=== PATIENT | male | born 1965 | race Two or more races ===

== ENCOUNTER 2019-02-06 17:23 | Emergency (ER) | payer MEDICAID ==
[~2019-02-06] VITALS: Ht 167.6 cm; Wt 74.8 kg
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
[2019-02-06 17:45] VITALS: BP 128/84
--- NOTE | 2019-02-06 18:05 | NUR ---
ED Nurse Note: PT AMBULATED TO RESTROOM INDEPEDENTLY WITH STEADY GAIT.
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
[2019-02-06 18:37] VITALS: BP 122/82
--- NOTE | 2019-02-06 18:37 | NUR ---
ED Nurse Note: PT LAYING PEACEFULLY IN BED IN NAD. AOX4. ALL RESOURCES REVIEWED ONCE AGAIN. MORE FOOD AND DRINK PROVIDED FOR PT. DISCHARGE PAPERWORK EXPLAINED TO PT. PT VERBALIZES UNDERSTANDING AND ALL QUESTIONS ANSWERED. PT STILL REFUSES ASSISTANCE WITH PLACEMENT AND STATES HE WILL FIGURE IT OUT ON HIS OWN. PT WALKED OUT OF ER WITH STEADY GAIT AND ALL BELONGINGS.
--- NOTE | 2019-02-07 16:25 | Cardiology Report ---
APPROVED REPORT EKG Measurement Heart [id number] [place] [id number] Normal sinus rhythm Normal ECG
== END 2019-02-06 18:37 | disposition home or self-care (01) ==
LOC: EDBD 17:23 → EMR 17:36
DX: F10.129 Alcohol abuse with intoxication, unspecified (principal); Z95.0 Presence of cardiac pacemaker; Z59.0 Homelessness; I10 Essential (primary) hypertension; J44.9 Chronic obstructive pulmonary disease, unspecified; E11.9 Type 2 diabetes mellitus without complications
CPT/HCPCS: 93005; 99283

== ENCOUNTER 2019-02-07 00:52 | Emergency (ER) | payer MEDICAID ==
[~2019-02-07] VITALS: Ht 170.2 cm; Wt 68.0 kg
[2019-02-07] MEDS ORDERED: Thiamine HCl 100 MG in D5W 55 ML IVPB STA (01:09)
[2019-02-07 01:10] VITALS: BP 122/83
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
--- NOTE | 2019-02-07 01:24 | Emergency Room Report ---
History of Present Illness General Chief Complaint: Alcohol Intoxication Source: Patient Present Illness HPI Patient presents complaining that he fell and hit his head. He's been drinking alcohol. He's not sure if he lost consciousness. He walked into the emergency department. He denies vomiting. He states he's got some tenderness there in the back of his head. The patient states he was evaluated in [place] last week (unsure if [facility] or [place]) . He can't describe why he was evaluated but has EKG patches on an IV markings. The patient drinks alcohol frequently. He admits to having withdrawal seizures in the past. He denies having a seizure tonight. He denies bleeding ulcers, delirium tremens. He denies suicidal or homicidal ideation. He denies hematemesis, coffee-ground emesis and melena. Patient was evaluated earlier yesterday. He stated he wanted his pacemaker checked. An EKG was done. He stated he wanted to leave after this got checked. He was discharged. It's documented that he ambulated out of the emergency department with a steady gait. No fevers, chills, chest pain, palpitations, nausea, vomiting, diarrhea, dysuria , abdominal pain, shortness of breath, depression, visual changes, headache. Allergies: Coded Allergies: No Known Allergies (Unverified , 02/06/19) Patient History Past Medical History: see triage record, old chart reviewed Past Surgical History: pacemaker Social History: Reports: smoking, alcohol use, drug use Social History Narrative homeless Reviewed Nursing Documentation: PMH: Agreed; PSxH: Agreed Nursing Documentation-PMH Hx Cardiac Problems: Yes Hx Hypertension: Yes Hx Pacemaker: Yes Hx COPD: Yes Hx Diabetes: Yes Review of Systems All Other Systems: negative except mentioned in HPI Physical Exam Vital Signs Date Time Temp Pulse Resp B/P (MAP) Pulse Ox O2 Delivery O2 Flow Rate FiO2 02/07/19 00:59 97.0 90 18 137/109 (118) 97 Room Air Sp02 EP Interpretation: reviewed, normal General Appearance: no apparent distress, GCS 15 Head: normocephalic, other - tenderness occiput, no hematoma Eyes: bilateral eye PERRL, bilateral eye abnormal EOM, bilateral eye Scleral Injection ENT: moist mucus membranes - . Mentation Neck: supple, no bony tend Respiratory: normal inspection, chest non-tender, lungs clear, other - pacer L Cardiovascular #1: regular rate, rhythm Cardiovascular #2: 2+ radial (R) Gastrointestinal: normal bowel sounds, non tender, soft Genitourinary: no CVA tenderness Musculoskeletal: digits/nails normal, normal range of motion, non-tender Neurologic: other - Ataxia, slurred speech, nystagmus, oriented - 2 Psychiatric: mood/affect normal - Appears intoxicated Reflexes: 1+ knee (R), 1+ knee (L) Skin: warm/dry, other - No abrasions Medical Decision Making Diagnostic Impression: Primary Impression: Head injury Qualified Codes: S09.90XA - Unspecified injury of head, initial encounter Additional Impressions: Alcohol intoxication Qualified Codes: F10.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 Differential includes brain bleed, subdural hematoma, head contusion, neck injury, electrolyte imbalance, alcohol intoxication, other drug ingestion amongst others. At this time he has a nonfocal neurologic exam however he has nystagmus and his ataxia. The patient will be treated with IV hydration, thiamine IV and observation on a cardiac rehabilitation program director. He'll be sent for CT the head , EKG and labs. EKG no injury. CXR atelectasis L with pacer. Labs with BAL 404. CT no abnormalities. Patient requests Librium. No tremor. Sleeping. Patient signed out to Dr. Sargent. Laboratory Tests Test 02/07/19 01:05 02/07/19 02:20 White Blood Count 8.7 K/UL (4.8-10.8) Red Blood Count 4.39 M/UL (4.70-6.10) L Hemoglobin 12.4 G/DL (14.2-18.0) L Hematocrit 36.6 % (42.0-52.0) L Mean Corpuscular Volume 83 FL (80-99) Mean Corpuscular Hemoglobin 28.3 PG (27.0-31.0) Mean Corpuscular Hemoglobin Concent 33.9 G/DL (32.0-36.0) Red Cell Distribution Width 15.8 % (11.6-14.8) H Platelet Count 474 K/UL (150-450) H Mean Platelet Volume 5.5 FL (6.5-10.1) L Neutrophils (%) (Auto) % (45.0-75.0) Lymphocytes (%) (Auto) % (20.0-45.0) Monocytes (%) (Auto) % (1.0-10.0) Eosinophils (%) (Auto) % (0.0-3.0) Basophils (%) (Auto) % (0.0-2.0) Differential Total Cells Counted 100 Neutrophils % (Manual) 10 % (45-75) L Lymphocytes % (Manual) 83 % (20-45) H Monocytes % (Manual) 5 % (1-10) Eosinophils % (Manual) 0 % (0-3) Basophils % (Manual) 2 % (0-2) Band Neutrophils 0 % (0-8) Platelet Estimate Increased H Platelet Morphology Normal Anisocytosis 1+ Target Cells 1+ Acanthocytes (Spur Cells) 1+ Sodium Level 136 MMOL/L (136-145) Potassium Level 3.7 MMOL/L (3.5-5.1) Chloride Level 101 MMOL/L (98-107) Carbon Dioxide Level 25 MMOL/L (21-32) Anion Gap 10 mmol/L (5-15) Blood Urea Nitrogen 20 mg/dL (7-18) H Creatinine 0.9 MG/DL (0.55-1.30) Estimate Glomerular Filtration Rate > 60 mL/min (>60) Glucose Level 121 MG/DL (74-106) H Calcium Level 8.6 MG/DL (8.5-10.1) Total Bilirubin 0.2 MG/DL (0.2-1.0) Aspartate Amino Transferase (AST) 59 U/L (15-37) H Alanine Aminotransferase (ALT) 40 U/L (12-78) Alkaline Phosphatase 248 U/L (46-116) H Total Creatine Kinase 150 U/L (26-308) Troponin I 0.000 ng/mL (0.000-0.056) Total Protein 9.1 G/DL (6.4-8.2) H Albumin 3.4 G/DL (3.4-5.0) Globulin 5.7 g/dL Albumin/Globulin Ratio 0.6 (1.0-2.7) L Salicylates Level 1.4 ug/mL (2.8-20) L Acetaminophen Level < 2 MCG/ML (10-30) L Serum Alcohol 404 mg/dL Urine Color Pale yellow Urine Appearance Clear Urine pH 5 (4.5-8.0) Urine Specific [place] 1.015 (1.005-1.035) Urine Protein 3+ (NEGATIVE) H Urine Glucose (UA) Negative (NEGATIVE) Urine Ketones Negative (NEGATIVE) Urine Blood 1+ (NEGATIVE) H Urine Nitrite Negative (NEGATIVE) Urine Bilirubin Negative (NEGATIVE) Urine Urobilinogen Normal MG/DL (0.0-1.0) Urine Leukocyte Esterase Negative (NEGATIVE) Urine RBC 0-2 /HPF (0 - 0) H Urine WBC 0-2 /HPF (0 - 0) Urine Squamous Epithelial Cells Occasional /LPF Urine Bacteria Occasional /HPF (NONE) Urine Opiates Screen Negative (NEGATIVE) Urine Barbiturates Screen Negative (NEGATIVE) Phencyclidine (PCP) Screen Negative (NEGATIVE) Urine Amphetamines Screen Positive (NEGATIVE) H Urine Benzodiazepines Screen Negative (NEGATIVE) Urine Cocaine Screen Negative (NEGATIVE) Urine Marijuana (THC) Screen Negative (NEGATIVE) EKG Diagnostic Results Rate: normal Rhythm: NSR ST Segments: no acute changes Rhythm Strip Diag. Results EP Interpretation: yes Rhythm: NSR, no PVC's, no ectopy Chest X-Ray Diagnostic Results Chest X-Ray Diagnostic Results : Chest X-Ray Ordered: Yes # of Views/Limited/Complete: 1 View Indication: Other EP Interpretation: Yes Interpretation: no effusion, no pneumothorax, other - linear atelectasis L and pacer Impression: Other Electronically Signed by: Electronically signed by Han Olivarez MD CT/MRI/US Diagnostic Results CT/MRI/US Diagnostic Results : Imaging Test Ordered: Head Impression No bleed or intracranial pathology. No fracture Last Vital Signs Date Time Temp Pulse Resp B/P (MAP) Pulse Ox O2 Delivery O2 Flow Rate FiO2 02/07/19 09:30 98.3 98 18 110/68 100 Room Air Status: improved Disposition: HOME, SELF-CARE Condition: Improved Han Olivarez MD February 07, 2019 01:24
[2019-02-07 01:40] LABS: HEMATOCRIT 36.6 % (42.0-52.0); HEMOGLOBIN 12.4 G/DL (14.2-18.0); MEAN CORPUSCULAR VOLUME 83 FL (80-99); PLATELET COUNT 474 K/UL (150-450); RED BLOOD COUNT 4.39 M/UL (4.70-6.10); RED CELL DISTRIBUTION WIDTH 15.8 % (11.6-14.8); WHITE BLOOD COUNT 8.7 K/UL (4.8-10.8)
--- NOTE | 2019-02-07 01:45 | NUR ---
ED Nurse Note: PT BEING TQKEN TO CT-SCAN VIA JOHN WITH PATRICIA HARVEY NOTED, IV SITE INTACT AND PATENT, WILLR ESUME CARE WHEN PT RETURNS TO DEPARTMENT.
[2019-02-07 01:52] LABS: ANION GAP 10 mmol/L (5-15); BLOOD UREA NITROGEN 20 mg/dL (7-18); CALCIUM 8.6 MG/DL (8.5-10.1); CARBON DIOXIDE 25 MMOL/L (21-32); CHLORIDE 101 MMOL/L (98-107); CREATININE 0.9 MG/DL (0.55-1.30); POTASSIUM 3.7 MMOL/L (3.5-5.1); SODIUM 136 MMOL/L (136-145)
[2019-02-07 01:58] LABS: ALANINE AMINOTRANSFERASE 40 U/L (12-78); ALBUMIN 3.4 G/DL (3.4-5.0); ALBUMIN/GLOBULIN RATIO 0.6 (1.0-2.7); ALKALINE PHOSPHATASE 248 U/L (46-116); ASPARTATE AMINO TRANSFERASE 59 U/L (15-37); BILIRUBIN,TOTAL 0.2 MG/DL (0.2-1.0); CREATINE KINASE 150 U/L (26-308)
[2019-02-07 02:45] LABS: APPEARANCE,URINE CLEAR; BILIRUBIN, URINE NEGATIVE (NEGATIVE); COLOR,URINE PALE YELLOW; GLUCOSE, URINE (UA) NEGATIVE (NEGATIVE); KETONES,URINE NEGATIVE (NEGATIVE); LEUKOCYTE ESTERASE ,URINE NEGATIVE (NEGATIVE); NITRITE,URINE NEGATIVE (NEGATIVE); PH,URINE 5 (4.5-8.0); PROTEIN,URINE 3+ (NEGATIVE); UROBILINOGEN,URINE NORMAL MG/DL (0.0-1.0)
[2019-02-07 03:11] VITALS: BP 115/83
--- NOTE | 2019-02-07 07:31 | NUR ---
ED Nurse Note: REPORT RECEIVED FROM DILSHAD FELICIANO. PT SLEEPING PEACEFULLY IN BED IN NAD. AOX4. CONNECTED TO DINING ROOM ATTENDANT CAFETERIA. VSS.
[2019-02-07 07:32] VITALS: BP 106/62
--- NOTE | 2019-02-07 08:00 | NUR ---
ED Nurse Note: BREAKFAST TRAY PROVIDED FOR PT. PT REMAINS AOX4 AND IS ANSWERING ALL QUESTIONS APPROPRIATELY. PT ATE 100% OF BREAKFAST. PT STILL HAS THE RESOURCES THAT WAS GIVEN TO HIM YESTERDAY AT DISCHARGE FROM [facility] REGARDING HOMELESS SHELTERS, FREE HEALTH CLINICS, AND DRUG AND ALCOHOL REHAB. PT STILL REFUSES ASSISTANCE WITH PLACEMENT AND STATES HE "WILL TAKE CARE OF IT ON HIS OWN." PT STILL DRESSED IN WEATHER APPROPRIATE CLOTHING.
[2019-02-07] MEDS ORDERED: LORazepam 1mg tab ORAL ONE (09:15)
--- NOTE | 2019-02-07 09:28 | NUR ---
ED Nurse Note: PT AWAKE AND REMOVED GOWN AND DRESSED INTO HIS OWN CLOTHES. VERBALIZES READINESS TO BE DISCHARGED. DR RODRIGUEZ STATES PT CAN BE DISCHARGED AT THIS TIME. DISCHARGE PAPERWORK EXPLAINED TO PT. RESOURCES REVIEWED ONCE AGAIN. PT VERBALIZES UNDERSTANDING AND ALL QUESTIONS ANSWERED. PT STILL REFUSES PLACEMENT ASSISTANCE OR TRANSPORTATION ASSISTANCE. PT GIVEN DISCHARGE PAPERWORK, IV AND ID WRISTBAND REMOVED. PT WALKED OUT OF ER WITH STEADY GAIT AND ALL BELONGINGS.
[2019-02-07 09:30] VITALS: BP 110/68
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
--- NOTE | 2019-02-07 16:28 | Cardiology Report ---
APPROVED REPORT EKG Measurement Heart [id number] [place] [id number] Normal sinus rhythm Possible Left atrial enlargement Borderline ECG
--- NOTE | 2019-02-07 17:47 | Diagnostic Imaging Report ---
Indication: Shortness of breath Technique: One view of the chest Comparison: none Findings: There is some discoid atelectasis or scarring in the left perihilar region. Lungs and pleural spaces are otherwise clear. There is a left chest bifocal AICD. The heart size is normal Impression: Left perihilar atelectasis versus scarring. No acute process otherwise
== END 2019-02-07 09:33 | disposition home or self-care (01) ==
LOC: EMR 01:30
DX: S09.90XA Unspecified injury of head, initial encounter (principal); F10.929 Alcohol use, unspecified with intoxication, unspecified; F15.10 Other stimulant abuse, uncomplicated; I10 Essential (primary) hypertension; J44.9 Chronic obstructive pulmonary disease, unspecified; E11.9 Type 2 diabetes mellitus without complications; Z95.0 Presence of cardiac pacemaker; F17.200 Nicotine dependence, unspecified, uncomplicated; G40.909 Epilepsy, unspecified, not intractable, without status epilepticus
CPT/HCPCS: 36415; 70450; 71045; 80053; 80307; 80329; 81003; 82550; 84484; 85007; 85025; 93005; 96361; 96365; 99284

== ENCOUNTER 2019-02-10 06:22 | Emergency (ER) | payer MEDICAID ==
[~2019-02-10] VITALS: Ht 172.7 cm; Wt 68.0 kg
[2019-02-10 06:37] VITALS: BP 115/88
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
--- NOTE | 2019-02-10 06:50 | NUR ---
ED Nurse Note: Pt was sent down for CT.
--- NOTE | 2019-02-10 07:20 | NUR ---
HAND-OFF: Report given to Horacio Key /DILSHAD for continue care. Pt is A/O X4. VSS.
--- NOTE | 2019-02-10 07:24 | NUR ---
ED Nurse Note: Pt returned from CT.
--- NOTE | 2019-02-10 07:59 | NUR ---
ED Nurse Note: pt sleeping in bed in stable condition. vs stable as documented.
[2019-02-10 08:00] VITALS: BP 108/72
--- NOTE | 2019-02-10 08:05 | Diagnostic Imaging Report ---
EXAM: CT Cervical Spine Without Intravenous Contrast CLINICAL HISTORY: H/A TECHNIQUE: Axial computed tomography images of the cervical spine without intravenous contrast. CTDI is 13 mGy and DLP is 273 mGy-cm. One or more of the following dose reduction techniques were used: automated exposure control, adjustment of the mA and/or kV according to patient size, use of iterative reconstruction technique. COMPARISON: None. FINDINGS: Vertebrae: Unremarkable. No acute fracture. Discs/spinal canal/neural foramina: Multilevel degenerative disease with neural foraminal stenosis. Soft tissues: Unremarkable. IMPRESSION: No acute fracture or prevertebral soft tissue swelling.
--- NOTE | 2019-02-10 08:10 | Diagnostic Imaging Report ---
EXAM: CT Head Without Intravenous Contrast. CLINICAL HISTORY: Headache TECHNIQUE: Axial computed tomography images of the head/brain without intravenous contrast. CTDI is 70.5 mGy and DLP is 1400 mGy-cm. One or more of the following dose reduction techniques were used: automated exposure control, adjustment of the mA and/or kV according to patient size, use of iterative reconstruction technique. COMPARISON: 02/07/19 FINDINGS: Brain: No hemorrhage. No significant white matter disease. No edema. Ventricles: Unremarkable. No ventriculomegaly. Bones: No acute fracture. Sinuses: Unremarkable as visualized. No acute sinusitis. Mastoid air cells: Unremarkable as visualized. No mastoid effusion. IMPRESSION: No acute intracranial abnormality.
[2019-02-10 08:20] VITALS: BP 108/72
--- NOTE | 2019-02-10 08:20 | NUR ---
ER DISCHARGE NOTE: Patient is cleared to be discharged per ERMD after discussing CT results, pt is aox4, on room air, with stable vital signs. pt was given dc and prescription instructions, pt was able to verbalize understanding, pt id band removed. pt is able to ambulate with steady gait. pt took all belongings. Pt was provided winter coat and food. pt refused to provide address of place he is going and longterm address for him to go.
[2019-02-10] MEDS ORDERED: TYLENOL EXTRA500 MG ORAL (08:22)
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
== END 2019-02-10 08:20 | disposition home or self-care (01) ==
LOC: EMR 06:42
DX: S09.90XA Unspecified injury of head, initial encounter (principal); E11.9 Type 2 diabetes mellitus without complications; I10 Essential (primary) hypertension; J44.9 Chronic obstructive pulmonary disease, unspecified; Z95.0 Presence of cardiac pacemaker; Z86.73 Personal history of transient ischemic attack (TIA), and cerebral infarction without residual deficits; Z59.0 Homelessness; Y09 Assault by unspecified means
CPT/HCPCS: 70450; 72125; 99284

== ENCOUNTER 2019-02-11 22:16 | Emergency (ER) | payer MEDICAID ==
[~2019-02-11] VITALS: Ht 172.7 cm; Wt 77.1 kg
[~2019-02-11 22:16] MED LIST: TYLENOL EXTRA500 MG ORAL
[2019-02-11 22:38] VITALS: BP 139/86
--- NOTE | 2019-02-11 22:45 | NUR ---
ED Nurse Note: pt walked in c/o pacemaker problem, pt reports he feels like his heart is going to jump out, doing funny things and thinks that it doesn't work. pt reports he has chest pain on precordial area, 10/10 about 30 min. pt denies sob. pt AA&ox4, gcs=15, skin warm and dry, resp even and unlabored on RA, -n/v/d, normal sinus on insulation machine operator, vss, will cont monitor.
--- NOTE | 2019-02-11 22:46 | NUR ---
ED Nurse Note: pt reports he doesn't take any medication, pt reports he threw all his meds out.
[2019-02-11 23:05] LABS: HEMATOCRIT 30.1 % (42.0-52.0); HEMOGLOBIN 10.1 G/DL (14.2-18.0); MEAN CORPUSCULAR VOLUME 84 FL (80-99); PLATELET COUNT 427 K/UL (150-450); RED BLOOD COUNT 3.59 M/UL (4.70-6.10); RED CELL DISTRIBUTION WIDTH 15.9 % (11.6-14.8); WHITE BLOOD COUNT 7.8 K/UL (4.8-10.8)
[2019-02-11 23:14] LABS: ANION GAP 6 mmol/L (5-15); BLOOD UREA NITROGEN 6 mg/dL (7-18); CALCIUM 7.9 MG/DL (8.5-10.1); CARBON DIOXIDE 30 MMOL/L (21-32); CHLORIDE 106 MMOL/L (98-107); CREATININE 0.9 MG/DL (0.55-1.30); POTASSIUM 3.6 MMOL/L (3.5-5.1); SODIUM 142 MMOL/L (136-145)
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
[2019-02-11 23:26] LABS: ALANINE AMINOTRANSFERASE 41 U/L (12-78); ALBUMIN 2.9 G/DL (3.4-5.0); ALBUMIN/GLOBULIN RATIO 0.6 (1.0-2.7); ALKALINE PHOSPHATASE 229 U/L (46-116); ASPARTATE AMINO TRANSFERASE 55 U/L (15-37); BILIRUBIN,TOTAL 0.3 MG/DL (0.2-1.0)
--- NOTE | 2019-02-12 00:10 | NUR ---
ED Nurse Note: REPORT GIVEN TO RN GENOVEVA AND ENDORSED CARE. VSS.
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
[2019-02-12 01:00] VITALS: BP 144/76
--- NOTE | 2019-02-12 02:15 | Emergency Room Report ---
History of Present Illness General Chief Complaint: Pacemaker/Defibrillator Source: Patient Present Illness HPI Patient is a 53-year-old male presented after recent alcohol intake. Patient had multiple visits the past few days. He presented with similar symptoms. Patient had previous CT imaging 1 day prior to arrival.Patient had previously been noted to be homeless. He has been noted to have multiple varied complaints and today complains of pacemaker firing. Patient states that he is not been vomiting or having any diarrhea. Allergies: Coded Allergies: No Known Allergies (Unverified , 02/06/19) Patient History Past Medical History: see triage record Reviewed Nursing Documentation: PMH: Agreed; PSxH: Agreed Nursing Documentation-PMH Past Medical History: No History, Except For Hx Cardiac Problems: Yes Hx Hypertension: Yes Hx Pacemaker: Yes Hx COPD: Yes Hx Diabetes: Yes Hx Cerebrovascular Accident: Yes Review of Systems All Other Systems: negative except mentioned in HPI Physical Exam Vital Signs Date Time Temp Pulse Resp B/P (MAP) Pulse Ox O2 Delivery O2 Flow Rate FiO2 02/11/19 22:17 97.7 86 18 139/86 (103) 98 Room Air Sp02 EP Interpretation: reviewed, normal General Appearance: normal inspection, well appearing, no apparent distress, alert, GCS 15, Chronically Ill Head: atraumatic ENT: normal ENT inspection, hearing grossly normal, normal voice Neck: normal inspection, full range of motion, supple, no bony tend Respiratory: normal inspection, lungs clear, normal breath sounds, no respiratory distress, no retraction, no wheezing Cardiovascular #1: regular rate, rhythm, no edema Gastrointestinal: normal inspection, normal bowel sounds, non tender, soft, no guarding, no hernia Genitourinary: no CVA tenderness Musculoskeletal: normal inspection, back normal, normal range of motion Neurologic: normal inspection, alert, oriented x3, responsive, 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 Sargent, the Treating physician, has assessed whether the patient is alert and oriented to person, place and time and has determined that the patient is clinically stable for discharge. Diagnostic Impression: Primary Impression: Alcohol abuse ER Course Patient presented for reported pacemaker firing. Differential diagnosis include was not limited to arrhythmia, malingering, alcohol intoxication among others. Patient does not appear to have any acute issues at this time. Patient 's laboratory testing was unremarkable other than elevated blood alcohol level. Patient has had 4 visits in the last 4days with varied complaints. He appears to have no acute need for hospitalization at this time.Patient was observed in the emergency department. He was given Ativan due to some increased agitation. Patient was observed in the emergency department and was noted to have improvement in his intoxication.Patient was noted to be stable for discharge. Labs Test 02/11/19 22:37 White Blood Count 7.8 K/UL (4.8-10.8) Red Blood Count 3.59 M/UL (4.70-6.10) Hemoglobin 10.1 G/DL (14.2-18.0) Hematocrit 30.1 % (42.0-52.0) Mean Corpuscular Volume 84 FL (80-99) Mean Corpuscular Hemoglobin 28.0 PG (27.0-31.0) Mean Corpuscular Hemoglobin Concent 33.5 G/DL (32.0-36.0) Red Cell Distribution Width 15.9 % (11.6-14.8) Platelet Count 427 K/UL (150-450) Mean Platelet Volume 4.7 FL (6.5-10.1) Neutrophils (%) (Auto) % (45.0-75.0) Lymphocytes (%) (Auto) % (20.0-45.0) Monocytes (%) (Auto) % (1.0-10.0) Eosinophils (%) (Auto) % (0.0-3.0) Basophils (%) (Auto) % (0.0-2.0) Sodium Level 142 MMOL/L (136-145) Potassium Level 3.6 MMOL/L (3.5-5.1) Chloride Level 106 MMOL/L (98-107) Carbon Dioxide Level 30 MMOL/L (21-32) Anion Gap 6 mmol/L (5-15) Blood Urea Nitrogen 6 mg/dL (7-18) Creatinine 0.9 MG/DL (0.55-1.30) Estimat Glomerular Filtration Rate > 60 mL/min (>60) Glucose Level 104 MG/DL (74-106) Calcium Level 7.9 MG/DL (8.5-10.1) Total Bilirubin 0.3 MG/DL (0.2-1.0) Aspartate Amino Transf (AST/SGOT) 55 U/L (15-37) Alanine Aminotransferase (ALT/SGPT) 41 U/L (12-78) Alkaline Phosphatase 229 U/L (46-116) Troponin I 0.000 ng/mL (0.000-0.056) Pro-B-Type Natriuretic Peptide 207 pg/mL (0-125) Total Protein 7.5 G/DL (6.4-8.2) Albumin 2.9 G/DL (3.4-5.0) Globulin 4.6 g/dL Albumin/Globulin Ratio 0.6 (1.0-2.7) Thyroid Stimulating Hormone (TSH) 0.968 uiU/mL (0.358-3.740) Serum Alcohol 257 mg/dL EKG Diagnostic Results Rate: normal Rhythm: NSR ST Segments: no acute changes Last Vital Signs Date Time Temp Pulse Resp B/P (MAP) Pulse Ox O2 Delivery O2 Flow Rate FiO2 02/11/19 22:44 87 02/11/19 22:38 97.7 18 139/86 98 Room Air Status: improved Disposition: HOME, SELF-CARE Condition: Stable Referrals: NON PHYSICIAN (PCP) Juvenal Sargent MD Feb 12, 2019 02:15
--- NOTE | 2019-02-12 03:00 | NUR ---
ED Nurse Note: PT IS SLEEPING QUIETLY, RESPIRATIONS EVEN AND UN-LABORED, NO S/S OF ANY DISTRESS NOTED, WILL CONTINUE TO CLOSELY MONITOR
[2019-02-12] MEDS ORDERED: Acetaminophen 500mg (ES) tab ORAL ONE (05:45)
[2019-02-12] MEDS ORDERED: LORazepam Inj 2mg/ml 1ml IV ONE (05:45)
--- NOTE | 2019-02-12 05:45 | NUR ---
ED Nurse Note: PT IN BED AWAKENED BY , PT IS VERY HOSTILE AND COMPLAINING OF PAIN IN HIS NECK, PT IS USING PROFANITY LANGUAGE TOWARDS STAFF AND THREATNING TO BECOME COMBATIVE IF WE DONT GET HIM SOME MEDS OR LEAVE HIM ALONE, PT DID ALLOW V/S TO BE TAKEN, WILL RESUME CARE AND MEDICATE ORDERED AND CLOSELY MONITOR, PT IS NOT SAFE FOR DISCHARGE AT THIS TIME, WILL MONITOR FOR MED EFFECTIVENESS.
[2019-02-12 06:00] VITALS: BP 144/84
--- NOTE | 2019-02-12 07:15 | NUR ---
ED Nurse Note: PT RESTING IN BED QUIETLY, AWAKENS TO VERBAL STIMULI, MEDS GIVEN EFFECTIVE, PREPARING PT FOR DISCHARGE, PT IS HOMELESS AND STASTES HE WANTS TO SEE WARP PREPARER BEFORE LEAVING TODAY, ON-COMING RN AWARE, PT HAS ALL BELONGINGS, NAD NOTED DURING SHIFT REPORT.
--- NOTE | 2019-02-12 07:31 | NUR ---
ED Nurse Note: reusmed care pt is sleeping in rt lying position easily arousable states he is not ready to be d/c'd said he wants another hour. Awaiting outreach and education social worker.
[2019-02-12 09:04] VITALS: BP 138/79
[2019-02-12] MEDS ORDERED: UNOBMED (09:14)
--- NOTE | 2019-02-12 09:14 | NUR ---
ED Nurse Note: social worker assistant called ,left a voicemail.
--- NOTE | 2019-02-12 10:00 | NUR ---
Social Service Note VAL met with patient to assess for homelessness. Patient with recent back to back ER visits indicating alcohol intoxication. Patient is alert, oriented and verbally responsive. Patient states he has been homeless for about 5 years. Patient states he moves between the [facility] and [place]. Patient states he has a bad heart and knows he will at young age. Patient believes since this is his fate he will continue to drink as he enjoys drinking. Patient states he has not sought out alcohol treatment and states he has been provided numerous resouces he didn't require anymore. SW discussed [facility] care [facility]. Patient closed his eyes and asked to sleep for 30 more minutes and then he would leave. Patient states he is familiar with the shelters and just requies bus tokens to get where he needs to be. Patient's PCP is Dr. Christiansen in [facility]. Patient states he just goes to hospitals when needed and will not follow up with appointments arranged by VAL. Patient will medi-bert. Patient denies mental health disoreder. Patient declined to provide an emergency contact. Patient states he has spent his [employer] aide he received this month and will beg for money to get by. Patient denies receiving SSI/SS. VAL discussed with primary nurse and ER physician. Patient to be discharged. Check list to be completed.
--- NOTE | 2019-02-12 10:04 | NUR ---
Ann reza in EDM - 02/12/19 at 1108 by JAROD ED Nurse Note: SW was at bedside pt refused placement ,was given referals. pt states he only wants a bus token.
--- NOTE | 2019-02-12 11:08 | NUR ---
ED Nurse Note: SW contacted again because pt refused to leave he said he wants some ativan and placement. ERMD Charge aware.
--- NOTE | 2019-02-12 11:14 | NUR ---
ED Nurse Note: transportation worker at bedside for 2nd visit
--- NOTE | 2019-02-12 11:48 | NUR ---
Homeless Discharge: Patient is being discharged from medical care. Awake, alert and oriented x3. After care instructions, including referral to community resources were given. Patient verbalized understanding of After care instructions; at this time patient does not request medications, equipment or placement. Patient signed patient consent in the medical record for patient destination upon discharge. All medical devices such as IV and ID band were removed. Patient ambulated out with all personal belongings with steady gait. PAtient was also given bus token for travel, patient refused to disclose where he was heading to, patient also threw resources in the trash can. patient was given sandwich and juice for discharge, patient's clothing is adequate for weather
[2019-02-12 11:50] VITALS: BP 132/75
--- NOTE | 2019-02-12 19:23 | Cardiology Report ---
APPROVED REPORT EKG Measurement Heart [id number] Sinus rhythm with premature supraventricular complexes Minimal voltage criteria for LVH, may be normal variant Borderline ECG
== END 2019-02-12 11:51 | disposition home or self-care (01) ==
LOC: EMR 22:50
DX: F10.10 Alcohol abuse, uncomplicated (principal); Z95.0 Presence of cardiac pacemaker; I10 Essential (primary) hypertension; J44.9 Chronic obstructive pulmonary disease, unspecified; E11.9 Type 2 diabetes mellitus without complications; Z86.73 Personal history of transient ischemic attack (TIA), and cerebral infarction without residual deficits
CPT/HCPCS: 36415; 80053; 80329; 83880; 84443; 84484; 85025; 93005; 96374; 99284